=== PATIENT | male | born 1995 | race Hispanic/Latino ===

== ENCOUNTER 2021-05-30 14:18 | Emergency (ER) | payer SELFPAY ==
[~2021-05-30] VITALS: Ht 182.9 cm; Wt 102.1 kg
== END 2021-05-30 17:25 | disposition home or self-care (01) ==
LOC: ER 14:23
DX: F41.0 Panic disorder [episodic paroxysmal anxiety] (principal)
CPT/HCPCS: 71045; 93005; 99283